=== PATIENT | female | born 1990 | race Hispanic/Latino ===

== ENCOUNTER 2017-02-11 06:42 | Emergency (ER) | payer SELFPAY ==
[~2017-02-11] VITALS: Ht 167.6 cm; Wt 80.0 kg
[~2017-02-11 06:42] MED LIST: ACYCLOVIR800 MG OR; AMOXICILLIN500 MG OR; AMOXICILLIN500 MG PO; CEPHALEXIN500 MG PO; COLACE100 MG PO; FLEXERIL PO; KEFLEX500 M1 PO; KEFLEX500 MG PO; LORTAB5 PO; NAPROSYN500 MG PO; NO HOME MEDS; PERCOCET 5/325M1 TAB PO; PREVACID30 M3 PO; TORADOL OR; ULTRAM50 M1 PO; VENTOLIN HFA IN; ZOFRAN ODT4 MG OR; ZOFRAN ODT4 MG PO
[2017-02-11 07:23] LABS: HEMATOCRIT 40.5 % (37.0-47.0); HEMOGLOBIN 14.2 g/dl (12.0-16.0); IMMATURE GRANULOCYTES 0.5 % (0.0-1.0); MEAN CELL VOLUME 94.8 fL CALC (80.0-100.0); MEAN CORPUSCULAR HGB 33.3 pG CALC (26.0-32.0); MEAN CORPUSCULAR HGB CONC 35.1 g/L CALC (32.0-36.0); NEUT# 7.37 thou/uL (2.00-7.15); RED BLOOD COUNT 4.27 mill/uL (4.20-5.60); RED CELL DISTRI WIDTH 11.4 % (11.5-15.5)
[2017-02-11 07:30] LABS: ALBUMIN 5.2 g/dL (3.2-5.0); ALKALINE PHOSPHATASE 98 u/l (38-126); ANION GAP 23 (6-22 (CALC)); BILIRUBIN, TOTAL 0.4 mg/dL (0.0-1.4); BUN 7 mg/dL (7-17); BUN/CREATININE RATIO 10 (12-20 (CALC)); CALCIUM 9.1 mg/dL (8.4-10.2); CARBON DIOXIDE 22 mmol/l (22-30); CHLORIDE 108 mmol/l (95-108); CREATININE 0.7 mg/dL (0.5-1.0); ETHYL ALCOHOL 227 mg/dl (0-30); GFR > 60 ML/MIN (>=60 (CALC)); GFR FOR AFR.AMER. > 60 ML/MIN (>=60 (CALC)); GLUCOSE 123 mg/dL (65-105); POTASSIUM 4.5 mmol/l (3.5-5.1); SGOT/AST 30 u/l (14-36); SGPT/ALT 58 u/l (9-52); SODIUM 149 mmol/l (137-146); TOTAL PROTEIN 8.7 g/dL (6.3-8.2)
[2017-02-11 07:42] LABS: MYOGLOBIN 47 ng/mL (0 - 62)
[2017-02-11 07:43] LABS: BARBITURATES NEGATIVE (NEGATIVE); COCAINE POSITIVE (NEGATIVE); METHADONE NEGATIVE (NEGATIVE); OXCYCODONE NEGATIVE (NEGATIVE); TETRAHYDROCANNABIONOL NEGATIVE (NEGATIVE); TRICYLIC ANTIDEPRESSANTS NEGATIVE (NEGATIVE); URINE BILIRUBIN - DIPSTICK NEGATIVE (NEGATIVE); URINE BLOOD DIPSTICK TRACE-LYSED (NEGATIVE); URINE CLARITY CLEAR; URINE COLOR YELLOW; URINE GLUCOSE - DIPSTICK NEGATIVE (NEGATIVE); URINE KETONE NEGATIVE (NEGATIVE); URINE LEUK ESTERASE NEGATIVE (NEGATIVE); URINE NITRITE - DIPSTICK NEGATIVE (Negative); URINE PH 5.5 (4.5-8.0); URINE PROTEIN - DIPSTICK NEGATIVE (NEG-TRACE); URINE SPECIFIC GRAVITY <=1.005; URINE UROBILINOGEN - DIPSTICK 0.2 E.U./dL (0.2)
[2017-02-11 13:31] VITALS: BP 122/66
== END 2017-02-11 13:50 | disposition home or self-care (01) | DRG 897 ==
LOC: ED 06:42 → EDBD 06:42 → ED 06:42
PROVIDERS: Emergency Medicine
DX: F10.129 Alcohol abuse with intoxication, unspecified (principal)

== ENCOUNTER 2018-06-24 17:23 | Emergency (ER) | payer MEDICAID ==
[~2018-06-24] VITALS: Ht 167.6 cm; Wt 65.9 kg
[2018-06-24 18:48] LABS: URINE BILIRUBIN - DIPSTICK NEGATIVE (NEGATIVE); URINE BLOOD DIPSTICK NEGATIVE (NEGATIVE); URINE COLOR YELLOW; URINE GLUCOSE - DIPSTICK NEGATIVE (NEGATIVE); URINE KETONE NEGATIVE (NEGATIVE); URINE LEUK ESTERASE NEGATIVE (NEGATIVE); URINE NITRITE - DIPSTICK NEGATIVE (Negative); URINE PROTEIN - DIPSTICK NEGATIVE (NEG-TRACE); URINE SPECIFIC GRAVITY >=1.030; URINE UROBILINOGEN - DIPSTICK 0.2 E.U./dL (0.2)
[2018-06-24 18:52] LABS: URINE CLARITY CLEAR
[2018-06-24 19:00] LABS: IMMATURE GRANULOCYTES 0.7 % (0.0-5.0); MEAN CELL VOLUME 96.4 fL CALC (80.0-100.0); MEAN CORPUSCULAR HGB 32.9 pG CALC (26.0-32.0); MEAN CORPUSCULAR HGB CONC 34.2 g/L CALC (32.0-36.0); NEUT# 5.41 thou/uL (2.00-7.15); RED BLOOD COUNT 3.37 mill/uL (4.20-5.60); RED CELL DISTRI WIDTH 12.1 % (11.5-15.5)
[2018-06-24 19:01] LABS: HEMATOCRIT 32.5 % (37.0-47.0); HEMOGLOBIN 11.1 g/dl (12.0-16.0)
[2018-06-24 19:07] LABS: ALKALINE PHOSPHATASE 61 u/l (38-126); AMYLASE 103 u/l (30-110); BILIRUBIN, TOTAL 0.3 mg/dL (0.0-1.4); BUN 8 mg/dL (7-17); BUN/CREATININE RATIO 21 (12-20 (CALC)); CARBON DIOXIDE 21 mmol/l (22-30); CHLORIDE 107 mmol/l (95-108); CREATININE 0.4 mg/dL (0.5-1.0); GFR > 60 ML/MIN (>=60 (CALC)); GFR FOR AFR.AMER. > 60 ML/MIN (>=60 (CALC)); LIPASE 523 u/l (23-300); POTASSIUM 3.6 mmol/l (3.5-5.1); SGOT/AST 24 u/l (14-36)
[2018-06-24 19:09] LABS: ALBUMIN 3.6 g/dL (3.2-5.0); ANION GAP 13 (6-22 (CALC)); SODIUM 137 mmol/l (137-146); TOTAL PROTEIN 6.5 g/dL (6.3-8.2)
[2018-06-24 22:25] VITALS: BP 119/63
== END 2018-06-24 22:27 | disposition left against medical advice (07) ==
LOC: ED 17:23
PROVIDERS: Emergency Medicine
DX: O26.892 Other specified pregnancy related conditions, second trimester (principal); K85.90 Acute pancreatitis without necrosis or infection, unspecified; R10.31 Right lower quadrant pain; R19.7 Diarrhea, unspecified; R11.0 Nausea; R30.0 Dysuria; Z91.19 Patient's noncompliance with other medical treatment and regimen; Z3A.18 18 weeks gestation of pregnancy

== ENCOUNTER 2018-11-21 21:56 | Emergency (ER) | payer MEDICAID ==
[~2018-11-21] VITALS: Ht 167.6 cm; Wt 68.1 kg
[2018-11-21 22:39] LABS: HEMATOCRIT 29.1 % (37.0-47.0); HEMOGLOBIN 9.8 g/dl (12.0-16.0); IMMATURE GRANULOCYTES 1.3 % (0.0-5.0); MEAN CELL VOLUME 95.4 fL CALC (80.0-100.0); MEAN CORPUSCULAR HGB 32.1 pG CALC (26.0-32.0); MEAN CORPUSCULAR HGB CONC 33.7 g/L CALC (32.0-36.0); NEUT# 4.63 thou/uL (2.00-7.15); RED BLOOD COUNT 3.05 mill/uL (4.20-5.60); RED CELL DISTRI WIDTH 12.4 % (11.5-15.5)
[2018-11-21 22:40] LABS: URINE BILIRUBIN - DIPSTICK NEGATIVE (NEGATIVE); URINE BLOOD DIPSTICK LARGE (NEGATIVE); URINE COLOR YELLOW; URINE GLUCOSE - DIPSTICK NEGATIVE (NEGATIVE); URINE KETONE NEGATIVE (NEGATIVE); URINE LEUK ESTERASE TRACE (NEGATIVE); URINE NITRITE - DIPSTICK NEGATIVE (Negative); URINE PH 7.5 (4.5-8.0); URINE PROTEIN - DIPSTICK NEGATIVE (NEG-TRACE); URINE UROBILINOGEN - DIPSTICK 0.2 E.U./dL (0.2)
[2018-11-21 22:50] LABS: URINE BACTERIA FEW hpf; URINE MUCUS FEW hpf (NONE-FEW); URINE SQUAMOUS EPITHELIAL CELL MODERATE EPI/hpf (0-FEW)
[2018-11-21 23:07] LABS: ALBUMIN 3.2 g/dL (3.2-5.0); ANION GAP 11 (6-22 (CALC)); BILIRUBIN, TOTAL 0.5 mg/dL (0.0-1.4); BUN 8 mg/dL (7-17); BUN/CREATININE RATIO 18 (12-20 (CALC)); CARBON DIOXIDE 22 mmol/l (22-30); CHLORIDE 110 mmol/l (95-108); CREATININE 0.4 mg/dL (0.5-1.0); GFR > 60 ML/MIN (>=60 (CALC)); GFR FOR AFR.AMER. > 60 ML/MIN (>=60 (CALC)); POTASSIUM 3.8 mmol/l (3.5-5.1); SGOT/AST 42 u/l (14-36); SODIUM 139 mmol/l (137-146); TOTAL PROTEIN 6.1 g/dL (6.3-8.2)
[2018-11-21 23:08] LABS: ALKALINE PHOSPHATASE 171 u/l (38-126)
[2018-11-22] MEDS ORDERED: PERCOCET 5/321 COMBO PO (00:21)
[2018-11-22 00:48] VITALS: BP 128/79
== END 2018-11-22 00:48 | disposition home or self-care (01) ==
LOC: ED 21:56
PROVIDERS: Family Medicine
DX: O89.4 Spinal and epidural anesthesia-induced headache during the puerperium (principal); Y84.4 Aspiration of fluid as the cause of abnormal reaction of the patient, or of later complication, without mention of misadventure at the time of the procedure
CPT/HCPCS: J0131

== ENCOUNTER 2019-09-30 | Emergency (ER) | payer MEDICAID ==
[~2019-09-30] MED LIST changes: +PERCOCET 5/321 COMBO PO
[2019-09-30] MEDS ORDERED: MEDDOSEPAK PO (14:56)
== END 2019-09-30 15:05 | disposition home or self-care (01) ==
DX: M77.9 Enthesopathy, unspecified (principal)

== ENCOUNTER 2021-04-26 10:33 | Emergency (ER) | payer MEDICAID ==
[~2021-04-26] VITALS: Ht 154.9 cm; Wt 71.8 kg
[~2021-04-26 10:33] MED LIST changes: +MEDDOSEPAK PO
[2021-04-26 12:31] LABS: URINE BILIRUBIN - DIPSTICK NEGATIVE (NEGATIVE); URINE BLOOD DIPSTICK SMALL (NEGATIVE); URINE GLUCOSE - DIPSTICK NEGATIVE (NEGATIVE); URINE KETONE NEGATIVE (NEGATIVE); URINE LEUK ESTERASE TRACE (NEGATIVE); URINE PROTEIN - DIPSTICK NEGATIVE (NEG-TRACE); URINE SPECIFIC GRAVITY 1.015; URINE UROBILINOGEN - DIPSTICK 0.2 E.U./dL (0.2)
[2021-04-26 12:32] LABS: URINE COLOR DK. YELLOW; URINE NITRITE - DIPSTICK NEGATIVE (Negative)
[2021-04-26 12:33] LABS: URINE BACTERIA FEW hpf; URINE EPITHELIAL CELLS MODERATE EPI/hpf (0-FEW)
[2021-04-26 13:34] LABS: IMMATURE GRANULOCYTES 0.1 % (0.0-5.0); MEAN CORPUSCULAR HGB 32.5 pG CALC (26.0-32.0); MEAN CORPUSCULAR HGB CONC 33.2 g/dL CAL (32.0-36.0); NEUT# 7.18 thou/uL (2.00-7.15); RED BLOOD COUNT 3.91 mill/uL (4.20-5.60); RED CELL DISTRI WIDTH 11.6 % (11.5-15.5)
[2021-04-26 13:41] LABS: HEMATOCRIT 38.3 % (37.0-47.0); HEMOGLOBIN 12.7 g/dl (12.0-16.0)
[2021-04-26 13:50] LABS: ALKALINE PHOSPHATASE 104 u/l (38-126); BILIRUBIN, TOTAL 0.6 mg/dL (0.0-1.4); BUN 5 mg/dL (7-17); BUN/CREATININE RATIO 9 (12-20 (CALC)); CHLORIDE 99 mmol/l (95-108); CREATININE 0.6 mg/dL (0.5-1.0); GFR > 60 ML/MIN (>=60 (CALC)); GFR FOR AFR.AMER. > 60 ML/MIN (>=60 (CALC)); LIPASE 28 u/l (23-300); POTASSIUM 3.2 mmol/l (3.5-5.1); SGOT/AST 34 u/l (14-36); SODIUM 138 mmol/l (137-146)
[2021-04-26 14:05] LABS: ALBUMIN 4.3 g/dL (3.2-5.0); ANION GAP 14 (6-22 (CALC)); CARBON DIOXIDE 28 mmol/l (22-30)
[2021-04-26 14:06] LABS: BETA-HCG, QUANT(RESULT NUMBER) 2016 mIU/mL
[2021-04-26] MEDS ORDERED: HYDROCO/APAP1 T10 PO (18:52)
[2021-04-26] MEDS ORDERED: AMOX/K CLAV875 M1 PO (18:52)
[2021-04-26] MEDS ORDERED: METRONIDAZOL500 MG PO (18:52)
[2021-04-26 19:35] VITALS: BP 134/78
== END 2021-04-26 19:35 | disposition home or self-care (01) ==
LOC: ED 10:33
PROVIDERS: Family Medicine
DX: R10.12 Left upper quadrant pain (principal); Z98.890 Other specified postprocedural states
CPT/HCPCS: Q9967

== ENCOUNTER 2022-09-20 12:20 | Emergency (ER) | payer OTHER, MEDICAID ==
[~2022-09-20] VITALS: Ht 154.9 cm; Wt 70.0 kg
[~2022-09-20 12:20] MED LIST changes: +AMOX/K CLAV875 M1 PO; +HYDROCO/APAP1 T10 PO; +METRONIDAZOL500 MG PO
[2022-09-20 13:34] VITALS: BP 135/93
[2022-09-20 14:27] LABS: URINE BILIRUBIN - DIPSTICK NEGATIVE (NEGATIVE); URINE BLOOD DIPSTICK NEGATIVE (NEGATIVE); URINE COLOR YELLOW; URINE GLUCOSE - DIPSTICK NEGATIVE (NEGATIVE); URINE KETONE NEGATIVE (NEGATIVE); URINE LEUK ESTERASE TRACE (Negative); URINE NITRITE - DIPSTICK POSITIVE (Negative); URINE PROTEIN - DIPSTICK NEGATIVE (NEG-TRACE); URINE UROBILINOGEN - DIPSTICK 0.2 E.U./dL (0.2)
[2022-09-20 14:43] LABS: URINE CLARITY HAZY
[2022-09-20 14:44] LABS: URINE BACTERIA FEW hpf; URINE EPITHELIAL CELLS FEW EPI/hpf (0-FEW); URINE WBC 0-2 WBC/hpf (0-5)
[2022-09-20 17:34] VITALS: BP 135/93
== END 2022-09-20 17:36 | disposition home or self-care (01) | DRG 914 ==
LOC: ED 12:20
PROVIDERS: Emergency Medicine
DX: S19.80XA Other specified injuries of unspecified part of neck, initial encounter (principal); S49.81XA Other specified injuries of right shoulder and upper arm, initial encounter; S39.83XA Other specified injuries of pelvis, initial encounter; V53.6XXA Passenger in pick-up truck or van injured in collision with car, pick-up truck or van in traffic accident, initial encounter

== ENCOUNTER 2022-10-31 09:32 | Emergency (ER) | payer MEDICAID ==
[~2022-10-31] VITALS: Ht 154.9 cm; Wt 70.8 kg
[2022-10-31 10:42] VITALS: BP 115/62
[2022-10-31 10:45] VITALS: BP 118/71
[2022-10-31 11:47] VITALS: BP 100/66
[2022-10-31 12:43] LABS: BASO% 0.3 % (0-3); EOS% 1.5 % (0-8); HEMATOCRIT 33.3 % (37.0-47.0); HEMOGLOBIN 10.9 g/dl (12.0-16.0); IMMATURE GRANULOCYTES 0.2 % (0.0-5.0); LYMPH% 21.9 % (15-41); MEAN CELL VOLUME 97.4 fL CALC (80.0-100.0); MEAN CORPUSCULAR HGB 31.9 pG CALC (26.0-32.0); MEAN CORPUSCULAR HGB CONC 32.7 g/dL CAL (32.0-36.0); MONO% 8.3 % (2-13); NEUT# 6.96 thou/uL (2.00-7.15); NEUT% 67.8 % (42-76); RED BLOOD COUNT 3.42 mill/uL (4.20-5.60); RED CELL DISTRI WIDTH 11.7 % (11.5-15.5)
[2022-10-31 12:45] LABS: URINE BILIRUBIN - DIPSTICK NEGATIVE (NEGATIVE); URINE BLOOD DIPSTICK NEGATIVE (NEGATIVE); URINE COLOR YELLOW; URINE GLUCOSE - DIPSTICK NEGATIVE (NEGATIVE); URINE KETONE NEGATIVE (NEGATIVE); URINE LEUK ESTERASE TRACE (NEGATIVE); URINE PROTEIN - DIPSTICK NEGATIVE (NEG-TRACE); URINE SPECIFIC GRAVITY 1.015
[2022-10-31 12:58] LABS: ALBUMIN 4.6 g/dL (3.2-5.0); ALKALINE PHOSPHATASE 87 u/l (38-126); ANION GAP 11 (6-22 (CALC)); BUN 14 mg/dL (7-17); BUN/CREATININE RATIO 18 (12-20 (CALC)); CARBON DIOXIDE 28 mmol/l (22-30); CHLORIDE 102 mmol/l (95-108); CREATININE 0.7 mg/dL (0.5-1.0); GFR FOR AFR.AMER. > 60 ML/MIN (>=60 (CALC)); GFR OTHER RACES > 60 ML/MIN (>=60 (CALC)); POTASSIUM 3.6 mmol/l (3.5-5.1); SGOT/AST 45 u/l (14-36); SODIUM 138 mmol/l (137-146); TOTAL PROTEIN 7.8 g/dL (6.3-8.2)
[2022-10-31 13:07] LABS: URINE NITRITE - DIPSTICK POSITIVE (Negative)
[2022-10-31 13:08] LABS: URINE BACTERIA MODERATE hpf; URINE EPITHELIAL CELLS FEW EPI/hpf (0-FEW)
[2022-10-31] MEDS ORDERED: KEFLEX500 MG PO (13:19)
[2022-10-31 13:20] VITALS: BP 100/66
== END 2022-10-31 13:54 | disposition home or self-care (01) ==
LOC: ED 09:32
PROVIDERS: Nurse Practitioner
DX: N39.0 Urinary tract infection, site not specified (principal)

== ENCOUNTER 2023-01-12 11:33 | Emergency (ER) | payer MEDICAID ==
[~2023-01-12] VITALS: Ht 154.9 cm; Wt 70.3 kg
[2023-01-12] MEDS ORDERED: METHOCARBAMOL750 MG PO (12:07)
[2023-01-12] MEDS ORDERED: NAPROXEN500 MG PO (12:50)
[2023-01-12 13:12] VITALS: BP 141/86
== END 2023-01-12 13:12 | disposition home or self-care (01) ==
LOC: ED 11:33
DX: S93.602A Unspecified sprain of left foot, initial encounter (principal); X50.0XXA Overexertion from strenuous movement or load, initial encounter

== ENCOUNTER 2024-08-11 17:12 | Emergency (ER) | payer SELFPAY ==
[~2024-08-11] VITALS: Ht 154.9 cm; Wt 76.2 kg
[2024-08-11] VITALS (10 sets, daily range): BP systolic 111–127; BP diastolic 60–80
[~2024-08-11 17:12] MED LIST changes: +METHOCARBAMOL750 MG PO; +NAPROXEN500 MG PO; +PENICILLN VK500 MG PO
[2024-08-11] MEDS ORDERED: METOCLOPRAMIDE HCL 10 MG/2 ML SDV IV ONE (17:25)
[2024-08-11] MEDS ORDERED: KETOROLAC TROMETHAMINE 30 MG/ML SDV IV ONE (17:25)
[2024-08-11] MEDS ORDERED: DiphenhydrAMINE HCL 50 MG/ML SDV IV ONE (17:25)
[2024-08-11] MEDS ORDERED: MAGNESIUM SULFATE HEPTAHYDRATE 50 ML IV ONE (17:25)
[2024-08-11 17:37] LABS: URINE BILIRUBIN - DIPSTICK Negative (NEGATIVE); URINE BLOOD DIPSTICK Negative (NEGATIVE); URINE COLOR Yellow; URINE GLUCOSE - DIPSTICK Negative (NEGATIVE); URINE KETONE Negative (NEGATIVE); URINE LEUK ESTERASE Negative (NEGATIVE); URINE NITRITE - DIPSTICK Negative (Negative); URINE PROTEIN - DIPSTICK Negative (NEG-TRACE); URINE SPECIFIC GRAVITY 1.025; URINE UROBILINOGEN - DIPSTICK 0.2 E.U./dL (0.2)
[2024-08-11 17:38] LABS: BASO% 0.4 % (0-3); EOS% 2.8 % (0-8); HEMATOCRIT 37.5 % (37.0-47.0); HEMOGLOBIN 12.4 g/dl (12.0-16.0); IMMATURE GRANULOCYTES 0.1 % (0.0-5.0); LYMPH% 35.3 % (15-41); MEAN CELL VOLUME 98.2 fL CALC (80.0-100.0); MEAN CORPUSCULAR HGB 32.5 pG CALC (26.0-32.0); MEAN CORPUSCULAR HGB CONC 33.1 g/dL CAL (32.0-36.0); MONO% 7.1 % (2-13); NEUT# 3.68 thou/uL (2.00-7.15); NEUT% 54.3 % (42-76); RED BLOOD COUNT 3.82 mill/uL (4.20-5.60); RED CELL DISTRI WIDTH 11.6 % (11.5-15.5)
[2024-08-11 17:58] LABS: ALBUMIN 4.4 g/dL (3.2-5.0); BILIRUBIN, TOTAL 0.5 mg/dL (0.02-1.3); CREATININE 0.5 mg/dL (0.5-1.0); POTASSIUM 3.8 mmol/l (3.5-5.1); TOTAL PROTEIN 7.5 g/dL (6.3-8.2)
[2024-08-11] MEDS ORDERED: MAXALT-MLT10 MG PO (19:33)
[2024-08-11] MEDS ORDERED: BUTALBITAL-APAP-CAFFEINE 50-325-40 TAB PO ONE (19:35)
== END 2024-08-11 19:41 | disposition home or self-care (01) | DRG 103 ==
LOC: ED 17:12
PROVIDERS: Family Medicine
DX: R51.9 Headache, unspecified (principal)
CPT/HCPCS: J1200; J2765; J3475